=== PATIENT | female | born 1985 | race Two or more races ===

== ENCOUNTER 2019-05-11 04:57 | Emergency (ER) | payer MEDICAID ==
[~2019-05-11] VITALS: Ht 162.6 cm; Wt 72.6 kg
[2019-05-11 05:01] VITALS: BP 141/97
== END 2019-05-11 08:51 | disposition left against medical advice (07) ==
LOC: ER 04:57
DX: J02.9 Acute pharyngitis, unspecified (principal); Z53.21 Procedure and treatment not carried out due to patient leaving prior to being seen by health care provider